=== PATIENT | male | born 1965 | race Caucasian/White ===

== ENCOUNTER → 2017-01-10 | Outpatient (CLI) | payer OTHER ==
--- NOTE | ~2017-01-10 | CR63 ---
[facility] A Service of [facility] & [facility] RADIOLOGY TEXT RESULTS PATIENT: NOLAN DE DIOS LOCATION: [facility] : 63 UNIT #: [id number] AGE: [address]: Fauzia Unger MD SEX: M ORDER DR: [id number] [address] [address] [id number] O MR#: [id number] Acc #: [id number] NAME: NOLAN DE DIOS : 1965 SEX: M STUDY DATE/TIME: 01/10/2017 12:30 UNIT: [facility] ROOM: STUDY DESCRIPTION: CR Chest 2 View Attending Physician: Fauzia Unger M.D. Ordering Physician: Fauzia Unger M.D. MEDICAL IMAGING REPORT This report is preliminary unless electronic signature is present. EXAM Two-view chest 01/10/2017 HISTORY 51-year-old male with cough and congestion for 1 month. COMPARISON STUDIES None. FINDINGS 2 views of the chest demonstrate clear lungs. No pleural effusion or pneumothorax. Heart size and mediastinum are normal. Pulmonary vasculature normal. IMPRESSION No acute cardiopulmonary findings. Dictated by... Jason Tobias M.D. THIS IS AN ELECTRONICALLY VERIFIED REPORT Jason Tobias M.D. at 01/11/2017 1:51 PM HITESH/loyd TD: 01/10/2017 18:24 JOB #: [id number] MEDICAL IMAGING REPORT Page 1 of 1
--- NOTE | ~2017-01-10 | CR181 ---
[facility]. [facility] A Service of [facility] & [facility] RADIOLOGY TEXT RESULTS PATIENT: NOLAN DE DIOS LOCATION: [facility] : 63 UNIT #: [id number] AGE: [address]: Fauzia Unger MD SEX: M ORDER DR: [id number] [address] [address] [id number] O MR#: [id number] Acc #: [id number] NAME: NOLAN DE DIOS : 1965 SEX: M STUDY DATE/TIME: 01/10/2017 12:30 UNIT: [facility] ROOM: STUDY DESCRIPTION: CR Lumbar Spine 2 or 3 Views Attending Physician: Fauzia Unger M.D. Ordering Physician: Fauzia Unger M.D. MEDICAL IMAGING REPORT This report is preliminary unless electronic signature is present. EXAM Lumbar spine 01/10/2017 HISTORY Low back pain since 2007 COMPARISON None. FINDINGS 3 views of lumbar spine demonstrate no acute fracture or subluxation. Vertebral body heights and alignment are normal. Disc spaces are normal. Facets are unremarkable. Sacrum and SI joints intact. IMPRESSION Unremarkable lumbar spine Dictated by... Jason Tobias M.D. THIS IS AN ELECTRONICALLY VERIFIED REPORT Jason Tobias M.D. at 01/11/2017 1:51 PM HITESH/marilee TD: 01/10/2017 18:28 JOB #: [id number] MEDICAL IMAGING REPORT Page 1 of 1
== END | disposition home or self-care (01) ==
LOC: SRAD 12:22
DX: I10 Essential (primary) hypertension (principal); M54.5 Low back pain
CPT/HCPCS: 71020; 72100